=== PATIENT | male | born 1965 | race Caucasian/White ===

== ENCOUNTER 2022-09-13 18:51 | Emergency (ER) | payer OTHER ==
[~2022-09-13] VITALS: Ht 172.7 cm; Wt 81.0 kg
[2022-09-13] MEDS ORDERED: NICARDIPINE 40MG/200ML PREMIX 200 ML IV STA (19:44)
[2022-09-13 19:45] LABS: BASOPHILS % 0.3 % (0.0-2.0); EOSINOPHILS % 2.2 % (0.0-5.0); HEMOGLOBIN. 14.4 g/dL (14.0-18.0); LYMPHOCYTES % 33.9 % (20.0-50.0); MEAN CORPUSCULAR HEMOGLOBIN 30.5 pg (28.0-32.0); MEAN PLATELET VOLUME 7.6 fl (7.4-10.4); MONOCYTES % 6.1 % (2.0-8.0); NEUTROPHILS % 57.5 % (40.0-76.0); PLATELET 217 x1000/uL (130-400); RED BLOOD CELL COUNT 4.73 mill/uL (4.7-6.1); RED CELL DISTRIBUTION WIDTH 13.7 % (11.6-14.6)
[2022-09-13] MEDS ORDERED: ESMOLOL 2500MG PREMIX 250 ML IV ONE ×2 (19:45→20:45)
[2022-09-13 19:57] LABS: CHLORIDE 108 mEq/L (98-107); INR 1.2; PARTIAL THROMBOPLASTIN TIME 34.2 sec (23.4-31.0); PROTHROMBIN TIME 12.8 sec (9.6-11.0)
[2022-09-13] MEDS ORDERED: ONDANSETRON HCL 4MG/2ML INJ IV STA (20:37)
[2022-09-13] MEDS ORDERED: MORPHINE SULFATE 4 MG/ML CPJ (NOT FOR IM USE) IV STA (20:37)
[2022-09-13] MEDS ORDERED: KCL 10MEQ/50ML PREMIX 50 ML IV ONE (20:45)
[2022-09-13] MEDS ORDERED: IOHEXOL-350 100 ML BOTTLE ONE (21:17)
[2022-09-13 22:12] VITALS: BP 99/51
== END 2022-09-14 00:52 | disposition short-term general hospital (02) ==
LOC: ER 18:51
DX: I63.9 Cerebral infarction, unspecified (principal); I71.010 Dissection of ascending aorta; I71.12 Aneurysm of the aortic arch, ruptured; I10 Essential (primary) hypertension; E78.00 Pure hypercholesterolemia, unspecified; Z20.822 Contact with and (suspected) exposure to COVID-19
CPT/HCPCS: 36415; 70450; 70496; 70498; 71045; 71275; 74174; 80053; 84484; 85025; 85610; 85730; 86850; 86900; 86901; 87426; 93005; 96361; 96374; 96375; 99291; C9803; J2270; J2405; J3480; J3490; Q9967; Z7610